=== PATIENT | female | born 1990 | race African-American/Black ===

== ENCOUNTER 2016-08-30 12:58 | Emergency (ER) | payer SELFPAY ==
[2016-08-30 13:17] VITALS: BP 128/68; PULSE 92; TEMP 97.9
[2016-08-30 13:18] VITALS: BMI 33.9
--- NOTE | 2016-08-30 13:25 | EDPRACDOC ---
- General Information Stated Complaint: RASH Time Seen by Provider: 08/30/16 13:17 Information Source: Patient Mode Of Arrival: Car Home Medications: Home Medications HydrOXYzine HCl (Antihistamine [Atarax] 25 mg PO Q6 PRN #20 tab 08/30/16 Permethrin [Elimite] 60 gm TP UNK #1 cream..g. 08/30/16 Prednisone [Deltasone] 20 mg PO BID #12 tablet 08/30/16 Allergies/Adverse Reactions: Allergies Allergy/AdvReac Type Severity Reaction Status Date / Time No Known Allergies Allergy Verified 08/30/16 13:20 - History of Present Illness Onset: 2-3 days HPI: PT PRESENTS TO ED WITH PRURITIC RASH TO BILATERAL WRIST AND DORSAL SURFACE OF HANDS FOR 2-3 DAYS. NO KNOWN IRRITANT OR CHANGE. NO PETS IN HOME. Rash Location: Reports: Hands (AND WRIST) Quality: Reports: Pruritic, Other (SMALL PAPULAR) Relevant History of: Reports: None Irritability: Mild Pain Severity: Mild Associated Signs and Symptoms: Reports: None ED Past Medical History - History Reviewed Yes Nurses notes reviewed and agree except as marked Travel Outside of [place] in the Last 3 Months?: No No Past Medical History: Yes Patient has no past medical history - Patient Medical History Psychological History: Denies: Depression - Social Medical History Smoking Status: Current some day smoker ETOH: None Substance Abuse: None Lives With: Other Lives In: Home EDM Review of Systems - Review of Systems ROS Negative Except as Marked: Yes All systems reviewed and were negative except as marked Constitutional: No Symptoms Reported. negative: Fever, Chills, Weakness, Fatigue, Loss of Appetite Eyes: No Symptoms Reported. negative: Redness, Blurred Vision, Double Vision, Discharge, Pain, Light Sensitive, Photophobia Ears: No Symptoms Reported. negative: Pain, Hearing Loss, Drainage, Ear Pulling Throat: No Symptoms Reported. negative: Pain, Swelling Nose: No Symptoms Reported. negative: Congestion, Bleeding, Discharge, Injection, Swelling, Deformity, Ecchymosis, Tender, Abrasion, Laceration Mouth: No Symptoms Reported. negative: Pain, Drooling Respiratory: No Symptoms Reported. negative: Cough, Brassy Cough, Barky Cough, Shortness of Breath, Wheezing, Hemoptysis Cardiovascular: No Symptoms Reported. negative: Chest Pain, Palpitations, Syncope, Edema, Orthopnea, PND, Skin Mottling, Cyanosis Gastrointestinal: No Symptoms Reported. negative: Pain, Constipation, Nausea, Vomiting, Diarrhea, Melena, Formula Intolerance Genitourinary: No Symptoms Reported. negative: Dysuria, Hematuria, Frequency, Discharge, Bleeding, Testicular Pain, Neurological: No Symptoms Reported. negative: Headache, Dizziness, Seizure, Numbness, Weakness, Speech Difficulty, Gait Difficulty Musculoskeletal: No Symptoms Reported. negative: Neck, Chestwall, Ribs, Back, Shoulder, Arm, Elbow, Forearm, Wrist, Hand, Pelvis, Hip, Femur, Knee, Leg, Ankle , Foot Integumentary: Rash (SMALL PAPULAR PRURITIC RASH TO BILATERAL HANDS AND WRIST). negative: Bruising, Itching, Wound Allergic/Immunologic: No Symptoms Reported. negative: Hives, Itching Hematologic: No Symptoms Reported. negative: Lymphadenopathy, Easy Bruising, Easy Bleeding Endocrine: No Symptoms Reported. negative: Weight Gain, Weight Loss Psychiatric: No Symptoms Reported. negative: Anxiety, Depression, Hallucinations, Insomnia, Suicidal - Physical Exam Constitutional: No apparent distress, Alert (Awake) Oriented to: Time, Person, Place Last recorded Vital Signs: Last Vital Signs Temp 97.9 F 08/30/16 13:17 Pulse 92 08/30/16 13:17 Resp 18 08/30/16 13:17 BP 128/68 08/30/16 13:17 Pulse Ox 99 08/30/16 13:17 Oxygen Pulse Oxygen Saturation 99 O2 Device Oxygen Flow Rate Fraction of Inspired Oxygen ( FIO2) - HEENT Head: Normal ( normocephalic) Eye Exam: Normal (PERRL, EOMI, Sclera white) Oropharynx: Normal (Pharynx:Moist without exudate,Gums-no swelling) Tympanic Membrane: Normal ENT EAC: Normal TMJ: Normal Nose: No Symptoms Reported (septum midline) Neck: Normal (FROM, trachea at midline) - Respiratory/Cardiovascular Respiratory: Normal - CTA (BBS clear to auscultation without adventitious sounds ) Cardiovascular: Normal (RRR without murmur, gallop or rub) - GI Auscultation: Normal (NABS) Palpation: Normal (Soft,No rebound or guarding, non distended) Tenderness: Non tender Luna's Sign: Negative - Bladder: Normal - Musculoskeletal Back: Normal (Non-Tender) Extremities: Normal (Normal tone, Pulses 2+ No cyanosis or edema, FROM) - Integumentary Skin: Normal, Warm, Dry, Rash (SMALL PAPULAR RASH TO BILATERAL HANDS AND WRIST, EXCORIATIONS NOTED FROM SCRATCHING) Lymphatics: Normal (no adenopathy) - Neurologic Memory Impaired: Normal Motor Function: Normal (Normal tone, Pulses 2+ No cyanosis or edema, FROM) Cranial Nerve: Normal (CN II-X11 intact sensation, strength 5/5) Cerebellar: Normal Mood Description: Normal Perception: Normal - Differential Diagnosis Contact dermatitis, Scabies - Additional Information DIFFICULT TO DISTINGUISH DUE TO SKIN COLOR, WILL TREAT EMPIRICALLY FOR SCABIES AND ALLERGIC CONTACT DERMATITIS. Decision Time to Discharge: 13:28 - Departure Disposition: Home Condition: Stable Final Diagnosis: Contact dermatitis Qualifiers: Contact dermatitis type: unspecified Contact dermatitis trigger: unspecified trigger Qualified Code(s): L25.9 - Unspecified contact dermatitis, unspecified cause Instructions: Contact Dermatitis (ED) Education/Counseling Given To: Patient Education/Counseling Given Regarding: Diagnosis, Treatment, Prognosis, Follow Up Referrals: None,No Provider [Primary Care Provider] - One Week David Goetz MD [Staff Physician] - One Week Prescriptions: HydrOXYzine HCl (Antihistamine [Atarax] 25 mg PO Q6 PRN #20 tab PRN Reason: Itching Permethrin [Elimite] 60 gm TP UNK #1 cream..g. Prednisone [Deltasone] 20 mg PO BID #12 tablet
== END 2016-08-30 13:40 | disposition home or self-care (01) ==
LOC: EDMC 12:58
DX: L25.9 Unspecified contact dermatitis, unspecified cause (principal)
CPT/HCPCS: 99282